=== PATIENT | male | born 1970 | race Caucasian/White ===

== ENCOUNTER 2021-11-23 07:09 | Emergency (ER) | payer OTHER ==
[~2021-11-23 07:09] MED LIST: ACULAR 0.5% OP S5 ML EYERT; ASPIR 8181 MG PO; AUGMENTIN 875-1 EACH PO; FLONASE 0.05% N16 GM; IBUPROFEN600 MG PO; NAPROSYN500 MG PO; NITROGLYCERIN0.4 MG SL; NORFLEX 100 MG100 MG PO; POLYTRIM EYE DR10 ML OP; PREDNISONE 50 M50 MG PO
[2021-11-23 07:45] LABS: HEMOGLOBIN 15.9 gm/dl (14.0-17.5); RED BLOOD COUNT 5.5 M/UL (4.20-5.50); WHITE BLOOD COUNT 11.5 K/UL (4.5-11.0)
[2021-11-23 08:07] LABS: BUN/CREATININE RATIO 15 (0-10)
[2021-11-23] MEDS ORDERED: CYCLOBENZAPRINE10 MG PO (10:43)
[2021-11-23] MEDS ORDERED: IBUPROFEN600 MG PO (10:43)
== END 2021-11-23 11:04 | disposition home or self-care (01) ==
LOC: ER1 07:09
PROVIDERS: Emergency Medicine
DX: R10.9 Unspecified abdominal pain (principal); R91.1 Solitary pulmonary nodule; R59.0 Localized enlarged lymph nodes; F17.200 Nicotine dependence, unspecified, uncomplicated
CPT/HCPCS: 80053; 81001; 83690; 85025; 96374; 99284; J1885

== ENCOUNTER 2022-02-12 18:10 | Emergency (ER) | payer OTHER ==
[~2022-02-12 18:10] MED LIST changes: +CYCLOBENZAPRINE10 MG PO
== END 2022-02-12 19:05 | disposition home or self-care (01) ==
LOC: ER1 18:10
DX: M70.32 Other bursitis of elbow, left elbow (principal); F17.200 Nicotine dependence, unspecified, uncomplicated
CPT/HCPCS: 99282